=== PATIENT | male | born 1985 | race Caucasian/White ===

== ENCOUNTER 2016-08-26 20:08 | Emergency (ER) | payer OTHER ==
[2016-08-26 20:22] VITALS: O2SAT 98
[2016-08-26] MEDS ORDERED: DILAUDID 1 MG/ML INJECTION IM ONE (20:29)
[2016-08-26] MEDS ORDERED: DILAUDID 1 MG/ML INJECTION ONE (20:32)
--- NOTE | 2016-08-26 20:36 | ERPHSYRPT ---
- History of Present Illness Time Seen by Provider: 08/26/16 20:25 Source: patient Exam Limitations: no limitations Patient Subjective Stated Complaint: pt c/o pain in lt testicle. stated he lifted a trailer last night and started having pain this morning Triage Nursing Assessment: pt alert and oriented, answers questions approp. skin pink warm and dry. pt ambulatory with steady gait noted. respirations nonlabored. lungs cta. scratches noted to head. pt states from huimself scratching his head. testicles with swelling noted. Physician History: 30 y/o male comes to the ER after pulling a trailer and feeling a pulling sensation in his testicular area. Pt localizes the pain under his testicle, left groin and right testicle. Pt describes the pain as sharp, constant, 8/10 and pt has not taken any pain meds. Timing/Duration: today Severity: severe Allergies/Adverse Reactions: No Known Drug Allergies Allergy (Verified 05/29/16 08:33) Home Medications: Escitalopram Oxalate [Lexapro] 20 mg PO DAILY 08/26/16 [History] Hx Tetanus, Diphtheria Vaccination/Date Given: Yes (2011) Hx Influenza Vaccination/Date Given: No Hx Pneumococcal Vaccination/Date Given: No Immunizations Up to Date: Yes - Review of Systems Constitutional: No Fever, No Chills Eyes: No Symptoms Ears, Nose, & Throat: No Symptoms Respiratory: No Cough, No Dyspnea Cardiac: No Chest Pain, No Edema, No Syncope Abdominal/Gastrointestinal: Other (testicular pain), No Abdominal Pain, No Nausea, No Vomiting, No Diarrhea Genitourinary Symptoms: No Dysuria Musculoskeletal: No Back Pain, No Neck Pain Skin: No Rash Neurological: No Dizziness, No Focal Weakness, No Sensory Changes Psychological: No Symptoms Endocrine: No Symptoms All Other Systems: Reviewed and Negative - Past Medical History Pertinent Past Medical History: Yes Neurological History: Seizures ENT History: No Pertinent History Cardiac History: No Pertinent History Respiratory History: No Pertinent History Endocrine Medical History: No Pertinent History Musculoskeletal History: Other GI Medical History: No Pertinent History History: Other Psycho-Social History: Anxiety, Depression Male Reproductive Disorders: No Pertinent History Other Medical History: back pain, kidney stones - Past Surgical History Past Surgical History: No - Social History Smoking Status: Current every day smoker How long have you smoked: yrs Exposure to second hand smoke: Yes Drug Use: none Patient Lives Alone: No - Nursing Vital Signs Nursing Vital Signs: Initial Vital Signs Temperature 97.4 F Temperature Source Axillary Pulse Rate 84 Respiratory Rate 18 Blood Pressure 142/78 Pain Intensity 8 - Physical Exam General Appearance: no apparent distress, alert Eye Exam: PERRL/EOMI, eyes nml inspection Ears, Nose, Throat Exam: normal ENT inspection, TMs normal, pharynx normal, moist mucous membranes Neck Exam: normal inspection, non-tender, supple, full range of motion Respiratory Exam: normal breath sounds, lungs clear, No respiratory distress Cardiovascular Exam: regular rate/rhythm, normal heart sounds, normal peripheral pulses Gastrointestinal/Abdomen Exam: soft, normal bowel sounds, No tenderness, No mass Male Genitalia Exam: testicular tenderness Back Exam: normal inspection, normal range of motion, No CVA tenderness, No vertebral tenderness Extremity Exam: normal inspection, normal range of motion, pelvis stable Neurologic Exam: alert, oriented x 3, cooperative, normal mood/affect, nml cerebellar function, nml station & gait, sensation nml, No motor deficits Skin Exam: normal color, warm, dry, No rash Lymphatic Exam: No adenopathy SpO2: 98 Oxygen Delivery: Room Air Ordered Tests: Active Orders 24 hr Category Date Time Status TESTICLE [US] Stat Exams 08/26/16 20:30 Taken Medication Summary Discontinued Medications Generic Name Dose Route Start Last Admin Trade Name Rama PRN Reason Stop Dose Admin Hydromorphone HCl 1 mg 08/26/16 20:29 08/26/16 20:37 Dilaudid 1 Mg/Ml Injection IM 08/26/16 20:30 Not Given STAT ONE Hydromorphone HCl Confirm 08/26/16 20:32 Dilaudid 1 Mg/Ml Injection Administered 08/26/16 20:33 Dose 1 mg .ROUTE .STK-MED ONE Oxycodone/Acetaminophen 1 tab 08/26/16 20:55 08/26/16 20:57 Percocet Tablet 5/325mg PO 08/26/16 20:56 1 tab STAT STA Administration Oxycodone/Acetaminophen Confirm 08/26/16 20:56 Percocet Tablet 5/325mg Administered 08/26/16 20:57 Dose 1 tab .ROUTE .STK-MED ONE - Progress Progress: improved Progress Note: 08/26/16 21:37 The US testicle is within normal limits. Pt will be d/c home on percocet for pain - Departure Time of Disposition: 21:38 Departure Disposition: Home Clinical Impression: Testicular injury Condition: Stable Critical Care Time: No Referrals: BALA THAYER [Primary Care Provider] - Instructions: Testicular Pain Additional Instructions: Follow up with your primary care doctor regarding any additional management for pain control. Prescriptions: Oxycodone HCl/Acetaminophen [Percocet 5-325 mg Tablet] 1 each PO Q6HPRN PRN #10 tablet PRN Reason: Pain
[2016-08-26] MEDS ORDERED: PERCOCET TABLET 5/325MG PO STA (20:55)
[2016-08-26] MEDS ORDERED: PERCOCET TABLET 5/325MG ONE ×2 (20:56→21:45)
[2016-08-26] MEDS ORDERED: PERCOCET TABLET 5/325MG PO ONE (21:41)
[2016-08-26 21:51] VITALS: BP 112/78; PULSE 74
--- NOTE | 2016-08-26 22:30 | XRAY ---
Indication: Left testicular pain. Two-dimensional testicle sonogram performed. Comparison: None Both testicles homogeneous in echogenicity with normal color Doppler flow. The right testicle measures 4.2 x 1.9 x 3.1 cm and the left measures 4.4 x 2.3 x 3.3 cm. Left and right epididymis unremarkable. No suspicious extratesticular mass or hydrocele. Impression: Negative testicular sonogram. Comment: Preliminary report was given.
== END 2016-08-26 21:50 | disposition home or self-care (01) ==
LOC: ED 20:08
DX: S39.848A Other specified injuries of external genitals, initial encounter (principal); N50.811 Right testicular pain; X50.0XXA Overexertion from strenuous movement or load, initial encounter
CPT/HCPCS: 76870; 99282; J1170

== ENCOUNTER 2016-09-22 12:17 | Emergency (ER) | payer OTHER ==
--- NOTE | 2016-09-22 12:50 | ERPHSYRPT ---
<JAMEL DESOUZA - Last Filed: 09/22/16 22:16> - History of Present Illness Source: patient, family (girlfriend Stephanie, mother), police Patient Subjective Stated Complaint: got into argument with someone and police called so he could get hes property, he told them and police he was suicidal police brought pt in via handcuffs. hand cuffs removed via police, he states he said it because he was mad. Triage Nursing Assessment: pt anxious ,aggiated,,states he is not suidical, crying off and on, on cell phone , he is calling barista to tasneem us, police,nurse, doc explained to pt multi times the process, pt will not stop talking long enough to listen to staff.ed papers filled out by police Hx Tetanus, Diphtheria Vaccination/Date Given: No Hx Influenza Vaccination/Date Given: No Hx Pneumococcal Vaccination/Date Given: No Immunizations Up to Date: Yes <EDISON BLANCA - Last Filed: 09/24/16 14:04> - History of Present Illness Time Seen by Provider: 09/22/16 12:19 Physician History: CC: psych assessment Hx: 30 y/o patient of Dr Babcock. Police were called to help patient obtain personal belongings from girlfriend's house. Apparently he and friend had argument yesterday. She asked him to leave. He was coming this AM to get clothes for a probation hearing. Police were called to assist. Patient was upset , angry. Kept saying he was going to kill himself. He did not express a plan. special service officer asked mother if she was concerned and she stated yes. He has been off xanax and ADD meds for a while. He gets angry. Pt denies current suicide thoughts but is upset he is here. (EDISON BLANCA) Allergies/Adverse Reactions: No Known Drug Allergies Allergy (Verified 09/22/16 12:37) - Past Medical History Pertinent Past Medical History: No Neurological History: Seizures ENT History: No Pertinent History Cardiac History: No Pertinent History Respiratory History: No Pertinent History Endocrine Medical History: No Pertinent History Musculoskeletal History: Other GI Medical History: No Pertinent History History: Other Psycho-Social History: Anxiety, Depression Male Reproductive Disorders: No Pertinent History Other Medical History: hep c - Past Surgical History Past Surgical History: No - Social History Smoking Status: Current every day smoker How long have you smoked: yrs Exposure to second hand smoke: Yes Drug Use: marijuana Patient Lives Alone: No <EDISON BLANCA - Last Filed: 09/24/16 14:04> - Review of Systems Constitutional: No Fever Eyes: No Symptoms Ears, Nose, & Throat: No Symptoms Abdominal/Gastrointestinal: No Abdominal Pain, No Nausea, No Vomiting Skin: No Rash Neurological: No Headache Psychological: Anxiety, Emotional Lability, No Depression, No Suicidal Ideations (denies), No Hallucinations All Other Systems: Reviewed and Negative <EDISON BLANCA - Last Filed: 09/24/16 14:04> - Physical Exam General Appearance: alert, thin, other (muscular, heavily tattooed, partially uncooperative) Eyes, Ears, Nose, Throat Exam: normal ENT inspection, moist mucous membranes Neck Exam: normal inspection, supple Respiratory Exam: normal breath sounds, lungs clear Cardiovascular Exam: regular rate/rhythm, No murmur Gastrointestinal/Abdominal Exam: soft, No tenderness, No distention Extremities Exam: normal inspection Current Suicidality: denies suicide plan Neurological Exam: alert Skin Exam: warm, dry, No rash SpO2 Interpretation: normal SpO2: 98 Oxygen Delivery: Room Air <EDISON BLANCA - Last Filed: 09/24/16 14:04> - Nursing Vital Signs Nursing Vital Signs: Initial Vital Signs Temperature 98.5 F Temperature Source Oral Pulse Rate 72 Respiratory Rate 16 Blood Pressure [Right Arm] 108/70 Pain Intensity 0 - Course Nursing assessment & vital signs reviewed: Yes <EDISON BLANCA - Last Filed: 09/24/16 14:04> Ordered Tests: Medication Summary Discontinued Medications Generic Name Dose Route Start Last Admin Trade Name Rama PRN Reason Stop Dose Admin Alprazolam 1 mg 09/22/16 22:01 09/22/16 22:06 Xanax 0.5 Mg PO 09/22/16 22:02 1 mg STAT ONE Administration Alprazolam Confirm 09/22/16 22:05 Xanax 0.5 Mg Administered 09/22/16 22:06 Dose 1 mg .ROUTE .STK-MED ONE Lorazepam Confirm 09/22/16 20:06 Ativan 2 Mg/1 Ml Vial Administered 09/22/16 20:07 Dose 2 mg .ROUTE .STK-MED ONE Lorazepam 2 mg 09/22/16 20:07 09/22/16 20:20 Ativan 2 Mg/1 Ml Vial IM 09/22/16 20:08 2 mg STAT ONE Administration Olanzapine 5 mg 09/22/16 12:51 09/22/16 15:28 Zyprexa Zydis 5 Mg PO 09/22/16 12:52 Not Given STAT ONE Olanzapine Confirm 09/22/16 13:20 Zyprexa Zydis 5 Mg Administered 09/22/16 13:21 Dose 5 mg PO .STK-MED ONE Lab/Rad Data: Laboratory Result Diagrams 09/22/16 13:03 09/22/16 13:03 Laboratory Results 09/22/16 09/22/16 09/22/16 Range/Units 14:25 13:03 13:03 WBC 10.3 (4.0-10.5) K/mm3 RBC 4.84 (4.1-5.6) M/mm3 Hgb 14.3 (12.5-18.0) gm/dl Hct 42.9 (42-50) % MCV 88.6 (78-100) fl MCH 29.5 (26-32) pg MCHC 33.3 (32-36) g/dl RDW 13.4 (11.5-14.0) % Plt Count 346 (150-450) K/mm3 MPV 9.0 (6-9.5) fl Gran % 66.9 H (36.0-66.0) % Lymphocytes % 19.1 L (24.0-44.0) % Monocytes % 13.0 H (0.0-12.0) % Eosinophils % 0.9 (0.00-5.0) % Basophils % 0.1 (0.0-0.4) % Basophils # 0.01 (0-0.4) Sodium 141 (136-145) mEq/L Potassium 3.7 (3.5-5.1) mEq/L Chloride 102 (98-107) mEq/L Carbon Dioxide 28.7 (21-32) mEq/L Anion Gap 13.5 (5-15) MEQ/L BUN 14 (9-20) mg/dL Creatinine 0.99 (0.55-1.30) mg/dl Estimated GFR > 60 ML/MIN Glucose 118 H (70-110) MG/DL Calcium 9.0 (8.5-10.1) mg/dL Total Bilirubin 0.6 (0.2-1.0) mg/dL AST 21 (15-37) U/L ALT 19 (12-78) U/L Alkaline Phosphatase 75 (46-116) U/L Serum Total Protein 7.5 (6.4-8.2) gm/dL Albumin 3.9 (3.4-5.0) g/dL Ur Collection Type Urine Color (YELLOW) Urine Appearance (CLEAR) Urine pH 7.5 (5-6) Ur Specific [place] (1.005-1.025) Urine Protein (Negative) Urine Glucose (UA) (NEGATIVE) mg/dL Urine Ketones (NEGATIVE) Urine Nitrite (NEGATIVE) Urine Bilirubin (NEGATIVE) Urine Urobilinogen (0-1) mg/dL Urine WBC (Auto) (NEGATIVE) Urine RBC (Auto) (0-5) Steve/ul Urine Microscopic RBC (0-2) /HPF Urine Microscopic WBC (0-5) /HPF Ur Epithelial Cells (FEW) /HPF Amorphous Crystals (NEGATIVE) /HPF Urine Bacteria (NEGATIVE) /HPF Salicylates < 2.8 L (2.8-20.0) mg/dl Urine Opiates Level (NEGATIVE) Ur Methadone (NEGATIVE) Acetaminophen < 2.0 L (10-30) ug/ml Urine Barbiturates (NEGATIVE) Ur Phencyclidine (PCP) (NEGATIVE) Urine Amphetamine (NEGATIVE) U Benzodiazepine Level (NEGATIVE) Urine Cocaine (NEGATIVE) Urine Marijuana (THC) (NEGATIVE) Urine Ethyl Alcohol 1 (0.00-20) mg/dl Specimen Received 09/22/16 09/22/16 Range/Units 12:26 12:26 WBC (4.0-10.5) K/mm3 RBC (4.1-5.6) M/mm3 Hgb (12.5-18.0) gm/dl Hct (42-50) % MCV (78-100) fl MCH (26-32) pg MCHC (32-36) g/dl RDW (11.5-14.0) % Plt Count (150-450) K/mm3 MPV (6-9.5) fl Gran % (36.0-66.0) % Lymphocytes % (24.0-44.0) % Monocytes % (0.0-12.0) % Eosinophils % (0.00-5.0) % Basophils % (0.0-0.4) % Basophils # (0-0.4) Sodium (136-145) mEq/L Potassium (3.5-5.1) mEq/L Chloride (98-107) mEq/L Carbon Dioxide (21-32) mEq/L Anion Gap (5-15) MEQ/L BUN (9-20) mg/dL Creatinine (0.55-1.30) mg/dl Estimated GFR ML/MIN Glucose (70-110) MG/DL Calcium (8.5-10.1) mg/dL Total Bilirubin (0.2-1.0) mg/dL AST (15-37) U/L ALT (12-78) U/L Alkaline Phosphatase (46-116) U/L Serum Total Protein (6.4-8.2) gm/dL Albumin (3.4-5.0) g/dL Ur Collection Type VOID Urine Color YELLOW (YELLOW) Urine Appearance SLIGHTLY CLOUDY (CLEAR) Urine pH 7.5 (5-6) Ur Specific [place] 1.010 (1.005-1.025) Urine Protein NEGATIVE (Negative) Urine Glucose (UA) NEGATIVE (NEGATIVE) mg/dL Urine Ketones NEGATIVE (NEGATIVE) Urine Nitrite NEGATIVE (NEGATIVE) Urine Bilirubin NEGATIVE (NEGATIVE) Urine Urobilinogen 0.2 (0-1) mg/dL Urine WBC (Auto) SMALL (NEGATIVE) Urine RBC (Auto) SMALL (0-5) Steve/ul Urine Microscopic RBC 0-2 (0-2) /HPF Urine Microscopic WBC 5-10 (0-5) /HPF Ur Epithelial Cells MANY (FEW) /HPF Amorphous Crystals MODERATE (NEGATIVE) /HPF Urine Bacteria FEW (NEGATIVE) /HPF Salicylates (2.8-20.0) mg/dl Urine Opiates Level POS. (NEGATIVE) Ur Methadone NEG. (NEGATIVE) Acetaminophen (10-30) ug/ml Urine Barbiturates NEG. (NEGATIVE) Ur Phencyclidine (PCP) NEG. (NEGATIVE) Urine Amphetamine POS. (NEGATIVE) U Benzodiazepine Level NEG. (NEGATIVE) Urine Cocaine NEG. (NEGATIVE) Urine Marijuana (THC) POS. (NEGATIVE) Urine Ethyl Alcohol (0.00-20) mg/dl Specimen Received 09/22/16 1430 <JAMEL DESOUZA - Last Filed: 09/22/16 22:16> - Progress Counseled pt/family regarding: lab results, diagnosis, need for follow-up <EDISON BLANCA - Last Filed: 09/24/16 14:04> - Progress Progress Note: 09/22/16 21:41 Patient was given Ativan 2 mg IM for agitation. Patient was evaluated by [facility] via tele-psych and recommended for inpatient admission. Patient was accepted to [facility] in [place]. Emergency alf for has been sent for approval. (JAMEL DESOUZA) 09/22/16 12:50 chief underwriter placed patient under Immediate Alf for psychiatric evaluation. 09/22/16 15:51 Pt stable. Spoke to Corry at and will obtain tele consult. 09/22/16 17:48 [facility] advised admission to [facility] for further assessment due to suicide comments made to police. Staff is calling [facility] for possible admission under emergency alf. 09/22/16 18:57 Explained to patient that behavioralist advised IP U evaluation face to face with psychiatry. He will have emergency alf. Plan transfer to [facility]. Offered zydis and ativan but pt declines. Await formal acceptance. (EDISON BLANCA) - Departure Departure Disposition: Transfer ([facility] accepting) <JAMEL DESOUZA - Last Filed: 09/22/16 22:16> - Departure Time of Disposition: 18:58 Departure Disposition: Transfer Critical Care Time: No <EDISON BLANCA - Last Filed: 09/24/16 14:04> - Departure Clinical Impression: Suicide ideation, Polysubstance abuse Condition: Fair Referrals: BALA BABCOCK [Primary Care Provider] -
[2016-09-22] MEDS ORDERED: Zyprexa Zydis 5 MG PO ONE ×2 (12:51→13:20)
[2016-09-22 13:05] LABS: BASOPHIL % 0.1 % (0.0-0.4); Eosinophil % 0.9 % (0.00-5.0); Granulocytes % 66.9 % (36.0-66.0); Lymphocytes % 19.1 % (24.0-44.0); Mean Cell Volume 88.6 fl (78-100); Mean Corpuscular Hemoglobin 29.5 pg (26-32); Platelet Count 346 K/mm3 (150-450); Red Blood Count 4.84 M/mm3 (4.1-5.6); Red Cell Distribution Width 13.4 % (11.5-14.0); White Blood Count 10.3 K/mm3 (4.0-10.5)
[2016-09-22 13:33] LABS: ALBUMIN 3.9 g/dL (3.4-5.0); ALKALINE PHOSPHATASE 75 U/L (46-116); ANION GAP 13.5 MEQ/L (5-15); BILIRUBIN,TOTAL 0.6 mg/dL (0.2-1.0); BLOOD UREA NITROGEN 14 mg/dL (9-20); CHLORIDE 102 mEq/L (98-107); Carbon Dioxide 28.7 mEq/L (21-32); Glucose 118 MG/DL (70-110); Potassium 3.7 mEq/L (3.5-5.1); SGOT/AST 21 U/L (15-37); SGPT/ALT 19 U/L (12-78); SODIUM 141 mEq/L (136-145); Total Protein 7.5 gm/dL (6.4-8.2)
[2016-09-22 13:38] LABS: ACETAMINOPHEN < 2.0 ug/ml (10-30)
[2016-09-22 15:04] LABS: Bacteria FEW /HPF (NEGATIVE); COMPLETE URINE MICROSCOPIC? YES; Collection Type VOID; Epithelial Cells MANY /HPF (FEW); Ph 7.5 (5-6)
[2016-09-22] MEDS ORDERED: Ativan 2 MG/1 ML VIAL ONE (20:06)
[2016-09-22] MEDS ORDERED: Ativan 2 MG/1 ML VIAL IM ONE (20:07)
[2016-09-22] MEDS ORDERED: xanAX 0.5 MG PO ONE (22:01)
[2016-09-22] MEDS ORDERED: xanAX 0.5 MG ONE (22:05)
[2016-09-23 01:06] VITALS: BP 108/70; PULSE 72
[2016-09-24 14:04] VITALS: O2SAT 98
== END 2016-09-23 01:00 | disposition short-term general hospital (02) ==
LOC: ED 12:17
DX: R45.851 Suicidal ideations (principal); F19.10 Other psychoactive substance abuse, uncomplicated
CPT/HCPCS: 36415; 80053; 80307; 80320; 81000; 83986; 85025; 90791; 96372; 99284; 99285; G0481; J2060; Q3014

== ENCOUNTER 2018-03-02 09:07 | Emergency (ER) | payer OTHER, SELFPAY ==
[2018-03-02] MEDS ORDERED: Pepcid 20 MG VIAL IV ONE ×2 (09:32→09:47)
[2018-03-02] MEDS ORDERED: Sodium Chloride 0.9% 1000 ML 1,000 ML IV STA (09:32)
[2018-03-02] MEDS ORDERED: TORAdol 30 mg Injection IV ONE (09:32)
[2018-03-02] MEDS ORDERED: Zofran 4 MG/2 ML VIAL IV ONE (09:32)
--- NOTE | 2018-03-02 09:36 | ERPHSYRPT ---
- History of Present Illness Time Seen by Provider: 03/02/18 09:26 Historian: patient Exam Limitations: no limitations Physician History: Pt has a history of kidney stones. He started c/o left upper abdominal pain since this morning, nauseated, denies vomiting, no diarrhea, fever, chills, but unable to urinate. Timing/Duration: today Activities at Onset: none Quality: cramping, sharpness Abdominal Pain Onset Location: [facility] Pain Radiation: flank (left) Severity of Pain-Max: severe Severity of Pain-Current: severe Modifying Factors: Improves With: nothing Associated Symptoms: nausea Previous symptoms: same symptoms as today Allergies/Adverse Reactions: No Known Drug Allergies Allergy (Verified 09/22/16 12:37) Hx Tetanus, Diphtheria Vaccination/Date Given: No Hx Influenza Vaccination/Date Given: No Hx Pneumococcal Vaccination/Date Given: No - Review of Systems Constitutional: No Symptoms Abdominal/Gastrointestinal: Abdominal Pain, Nausea All Other Systems: Reviewed and Negative - Past Medical History Pertinent Past Medical History: No Neurological History: Seizures ENT History: No Pertinent History Cardiac History: No Pertinent History Respiratory History: No Pertinent History Endocrine Medical History: No Pertinent History Musculoskeletal History: Other GI Medical History: No Pertinent History History: Other Psycho-Social History: Anxiety, Depression Male Reproductive Disorders: No Pertinent History Other Medical History: hep c - Past Surgical History Past Surgical History: No - Social History Smoking Status: Current every day smoker How long have you smoked: yrs Exposure to second hand smoke: Yes Drug Use: marijuana Patient Lives Alone: No - Nursing Vital Signs Nursing Vital Signs: Initial Vital Signs Pulse Rate 54 L 03/02/18 09:57 Respiratory Rate 18 03/02/18 09:57 Blood Pressure 135/102 03/02/18 09:57 O2 Sat by Pulse Oximetry 100 03/02/18 09:57 Pain Scale Pain Intensity 5 - Physical Exam General Appearance: mild distress Eye Exam: eyes nml inspection Ears, Nose, Throat Exam: normal ENT inspection, moist mucous membranes Neck Exam: normal inspection, non-tender Respiratory Exam: normal breath sounds, lungs clear, airway intact Cardiovascular Exam: regular rate/rhythm, normal heart sounds, normal peripheral pulses, No murmur Gastrointestinal/Abdomen Exam: soft, normal bowel sounds, tenderness (LLQ, mod.) , No distention, No mass, No guarding, No rebound, No hernia, No organomegaly Male Genitalia Exam: normal genitalia Extremity Exam: normal inspection Neurologic Exam: alert, oriented x 3, other (anxious) Skin Exam: normal color, warm, dry, No rash Lymphatic Exam: No adenopathy SpO2 Interpretation: normal Oxygen Delivery: Room Air - Course Nursing assessment & vital signs reviewed: Yes - CT Exams Abdomen/Pelvis CT Interpretation: Tele-radiologist Report, Other (2-3 mm distal left ureteral calculus pruducing partial obstructive uropathy.) Ordered Tests: Active Orders 24 hr Category Date Time Status IV Insertion STAT Care 03/02/18 09:32 Active NPO (ED) STAT Care 03/02/18 09:32 Active ABDOMEN AND PELVIS W/0 CONTRAS [CT] Stat Exams 03/02/18 09:32 Completed CBC W DIFF Stat Lab 03/02/18 09:45 Completed CMP Stat Lab 03/02/18 09:45 Completed CULTURE,URINE Stat Lab 03/02/18 10:01 Received LIPASE Stat Lab 03/02/18 09:45 Completed UA W/ MICROSCOPIC Stat Lab 03/02/18 10:01 Completed Urine Triage Profile Stat Lab 03/02/18 10:01 Ordered Medication Summary Generic Name Dose Route Start Last Admin Trade Name Freq PRN Reason Stop Dose Admin Tamsulosin HCl 0.4 mg 03/03/18 10:47 Flomax 0.4 Mg PO 03/03/18 10:48 STAT ONE Discontinued Medications Generic Name Dose Route Start Last Admin Trade Name Freq PRN Reason Stop Dose Admin Famotidine 20 mg 03/02/18 09:32 03/02/18 09:51 Pepcid 20 Mg Vial IV 03/02/18 09:33 20 mg STAT ONE Administration Famotidine Confirm 03/02/18 09:47 Pepcid 20 Mg Vial Administered 03/02/18 09:48 Dose 20 mg IV .STK-MED ONE Sodium Chloride 1,000 mls @ 999 mls/hr 03/02/18 09:32 03/02/18 10:05 Sodium Chloride 0.9% 1000 Ml IV 03/02/18 10:32 999 mls/hr .Q1H1M STA Administration Sodium Chloride Confirm 03/02/18 09:47 Sodium Chloride 0.9% 1000 Ml Administered 03/02/18 09:48 Dose 1,000 mls @ ud .ROUTE .STK-MED ONE Ketorolac Tromethamine 30 mg 03/02/18 09:32 03/02/18 09:51 Toradol 30 Mg Injection IV 03/02/18 09:33 30 mg STAT ONE Administration Ketorolac Tromethamine Confirm 03/02/18 09:47 Toradol 30 Mg Injection Administered 03/02/18 09:48 Dose 30 mg .ROUTE .STK-MED ONE Ondansetron HCl 4 mg 03/02/18 09:32 03/02/18 09:51 Zofran 4 Mg/2 Ml Vial IV 03/02/18 09:33 4 mg STAT ONE Administration Ondansetron HCl Confirm 03/02/18 09:47 Zofran 4 Mg/2 Ml Vial Administered 03/02/18 09:48 Dose 4 mg .ROUTE .STK-MED ONE Lab/Rad Data: Laboratory Result Diagrams 03/02/18 09:45 03/02/18 09:45 Laboratory Results 03/02/18 03/02/18 03/02/18 Range/Units 10:01 09:45 09:45 WBC 9.9 (4.0-10.5) K/mm3 RBC 5.07 (4.1-5.6) M/mm3 Hgb 15.5 (12.5-18.0) gm/dl Hct 45.7 (42-50) % MCV 90.1 (78-100) fl MCH 30.6 (26-32) pg MCHC 33.9 (32-36) g/dl RDW 13.7 (11.5-14.0) % Plt Count 352 (150-450) K/mm3 MPV 9.5 (6-9.5) fl Gran % 63.0 (36.0-66.0) % Eos # (Auto) 0.18 (0-0.5) Absolute Lymphs (auto) 2.18 (1.0-4.6) Absolute Monos (auto) 1.27 (0.0-1.3) Lymphocytes % 22.1 L (24.0-44.0) % Monocytes % 12.9 H (0.0-12.0) % Eosinophils % 1.8 (0.00-5.0) % Basophils % 0.2 (0.0-0.4) % Absolute Granulocytes 6.23 (1.4-6.9) Basophils # 0.02 (0-0.4) Sodium 140 (137-145) mmol/L Potassium 3.7 (3.5-5.1) mmol/L Chloride 101 (98-107) mmol/L Carbon Dioxide 29 (22-30) mmol/L Anion Gap 13.6 (5-15) MEQ/L BUN 13 (9-20) mg/dL Creatinine 0.95 (0.66-1.25) mg/dL Estimated GFR > 60.0 ML/MIN Glucose 118 H (74-106) mg/dL Calcium 9.6 (8.4-10.2) mg/dL Total Bilirubin 1.10 (0.2-1.3) mg/dL AST 29 (17-59) U/L ALT 25 (0-50) U/L Alkaline Phosphatase 102 (38-126) U/L Serum Total Protein 7.9 (6.3-8.2) g/dL Albumin 4.7 (3.5-5.0) g/dL Lipase 88 (23-300) U/L Ur Collection Type CLEAN CATCH Urine Color YELLOW (YELLOW) Urine Appearance CLOUDY (CLEAR) Urine pH 7.5 (5-6) Ur Specific [place] 1.015 (1.005-1.025) Urine Protein NEGATIVE (Negative) Urine Ketones SMALL (NEGATIVE) Urine Blood 250 (0-5) Steve/ul Urine Nitrite NEGATIVE (NEGATIVE) Urine Bilirubin NEGATIVE (NEGATIVE) Urine Urobilinogen NORMAL (0-1) mg/dL Ur Leukocyte Esterase TRACE (NEGATIVE) Urine Microscopic RBC 5-10 (0-2) /HPF Urine Microscopic WBC 0-2 (0-5) /HPF Ur Epithelial Cells RARE (FEW) /HPF Calcium Oxalate Crystal 0-2 (NEGATIVE) /HPF Amorphous Crystals MODERATE (NEGATIVE) /HPF Urine Bacteria MODERATE (NEGATIVE) /HPF Urine Culture Reflexed YES (NO) Urine Glucose NEGATIVE (NEGATIVE) mg/dL Specimen Received 03/02/18 1033 - Progress Progress: improved Progress Note: 03/02/18 10:54 Pt is asleep, comfortable, pain resolved, afebrile, stable. I discussed our results with him and his , he is being discharged to follow up with his physician next week, rest x 2-3 days, drink plenty of fluids, and strain every urine, return if severe pain, vomiting, fever> 101 F. Counseled pt/family regarding: lab results, diagnosis, need for follow-up, rad results - Departure Time of Disposition: 10:55 Departure Disposition: Home Clinical Impression: Ureteral stone Condition: Stable Critical Care Time: No Referrals: DOCTOR,NO FAMILY [Primary Care Provider] - Instructions: Renal Colic (DC) Additional Instructions: Rest x 2-3 days, drink plenty of fluids, and strain every urine, return if severe pain, vomiting, fever> 101 F! Follow up with your physician next week! Prescriptions: Ondansetron ODT 4 MG [Zofran Odt 4 mg] 4 mg PO Q6H PRN PRN #10 tab.rapdis PRN Reason: Nausea/Vomiting Tamsulosin HCl 0.4 mg [Flomax 0.4 MG] 0.4 mg PO DAILY #5 cap
[2018-03-02] MEDS ORDERED: Zofran 4 MG/2 ML VIAL ONE (09:47)
[2018-03-02] MEDS ORDERED: Sodium Chloride 0.9% 1000 ML 1,000 ML ONE (09:47)
[2018-03-02] MEDS ORDERED: TORAdol 30 mg Injection ONE (09:47)
[2018-03-02 09:51] LABS: BASOPHIL % 0.2 % (0.0-0.4); Basophil (Absolute #) 0.02 (0-0.4); Eosinophil % 1.8 % (0.00-5.0); Eosinophil (Absolute #) 0.18 (0-0.5); Granulocyte Absolute (ANC) 6.23 (1.4-6.9); Hematocrit 45.7 % (42-50); Hemoglobin 15.5 gm/dl (12.5-18.0); Lymphocyte (Absolute #) 2.18 (1.0-4.6); Lymphocytes % 22.1 % (24.0-44.0); Mean Cell Volume 90.1 fl (78-100); Mean Corpuscular Hemoglobin 30.6 pg (26-32); Mean Corpuscular Hgb Concent. 33.9 g/dl (32-36); Mean Platelet Volume 9.5 fl (6-9.5); Monocyte (Absolute #) 1.27 (0.0-1.3); Monocytes % 12.9 % (0.0-12.0); Platelet Count 352 K/mm3 (150-450); Red Blood Count 5.07 M/mm3 (4.1-5.6); Red Cell Distribution Width 13.7 % (11.5-14.0); White Blood Count 9.9 K/mm3 (4.0-10.5)
[2018-03-02 10:10] LABS: ALBUMIN 4.7 g/dL (3.5-5.0); ALKALINE PHOSPHATASE 102 U/L (38-126); ANION GAP 13.6 MEQ/L (5-15); BLOOD UREA NITROGEN 13 mg/dL (9-20); CHLORIDE 101 mmol/L (98-107); Calcium 9.6 mg/dL (8.4-10.2); Carbon Dioxide 29 mmol/L (22-30); Creatinine 1 0.95 mg/dL (0.66-1.25); Glucose 118 mg/dL (74-106); LIPASE 88 U/L (23-300); Potassium 3.7 mmol/L (3.5-5.1); SGOT/AST 29 U/L (17-59); SGPT/ALT 25 U/L (0-50); SODIUM 140 mmol/L (137-145); Total Protein 7.9 g/dL (6.3-8.2)
--- NOTE | 2018-03-02 10:28 | XRAY ---
Indication: Left upper quadrant pain. Trouble urinating. Multiple contiguous axial images obtained through the abdomen and pelvis without contrast as ordered. Comparison: CT renal stone study May 29, 2016. Lung bases again demonstrates calcified granulomas. No infiltrate or effusion. Heart is not enlarged. Noncontrasted stomach and bowel loops appear nonobstructed. Again there is mild diffuse scattered colonic fecal debris throughout. Normal appendix. No free fluid/air. New 2-3 mm distal left ureteral calculus just proximal to the UVJ with minimal hydronephrosis. Again there are small gallstones, tiny calcified splenic granulomas, and bilateral renal micro-calculi. Remaining liver, gallbladder, pancreas, spleen, adrenal glands, kidneys, ureters, bladder, and aorta appear unremarkable for noncontrast exam. Osseous structures intact. Impression: 1. New 2-3 mm distal left ureteral calculus producing partial obstructive uropathy. 2. Again mild fecal stasis without obstruction, gallstones, and bilateral renal micro-calculi. CT DI 8.84
[2018-03-02 10:33] LABS: Appearance CLOUDY (CLEAR); Bilirubin NEGATIVE (NEGATIVE); Blood 250 Ery/ul (0-5); Glucose NEGATIVE (NEGATIVE); Ketones SMALL (NEGATIVE); Leukocyte Esterase TRACE (NEGATIVE); Nitrite NEGATIVE (NEGATIVE); Ph 7.5 (5-6); Protein,Urine Dip NEGATIVE (Negative); Specific Gravity 1.015 (1.005-1.025); Urobilinogen NORMAL mg/dL (0-1)
[2018-03-02 10:34] LABS: Amourphous Crystal MODERATE /HPF (NEGATIVE); Bacteria MODERATE /HPF (NEGATIVE); Calcium Oxalate Crystals 0-2 /HPF (NEGATIVE); Epithelial Cells RARE /HPF (FEW); WBC 0-2 /HPF (0-5)
[2018-03-02 10:35] LABS: Barbiturate,Urine NEGATIVE (NEGATIVE); Benzodiazepine,Urine NEGATIVE (NEGATIVE); Cocaine,Urine NEGATIVE (NEGATIVE); Methadone,Urine NEGATIVE (NEGATIVE); Opiate,Urine NEGATIVE (NEGATIVE); PCP,Urine NEGATIVE (NEGATIVE); THC,Urine POSITIVE (NEGATIVE)
[2018-03-02] MEDS ORDERED: Flomax 0.4 MG ONE (11:01)
[2018-03-02 11:04] LABS: Amphetamine,Urine POSITIVE (NEGATIVE)
[2018-03-02 11:05] VITALS: BP 123/88
[2018-03-02 11:20] VITALS: PULSE 72; O2SAT 97
[2018-03-03] MEDS ORDERED: Flomax 0.4 MG PO ONE (10:47)
== END 2018-03-02 11:18 | disposition home or self-care (01) ==
LOC: ED 09:07
DX: N20.1 Calculus of ureter (principal); Z87.442 Personal history of urinary calculi
CPT/HCPCS: 36000; 36415; 74176; 80053; 80307; 81000; 83690; 85025; 87086; 96360; 96374; 96375; 99284; J1885; J2405; A9270-GY